=== PATIENT | female | born 1995 | race African-American/Black ===

== ENCOUNTER 2016-07-28 20:13 | Emergency (ER) | payer SELFPAY ==
[~2016-07-28] VITALS: Ht 160 cm; Wt 48.2 kg
[2016-07-29 01:56] VITALS: BP 110/77
== END 2016-07-29 01:56 | disposition home or self-care (01) ==
LOC: ER 20:14
DX: B34.9 Viral infection, unspecified (principal); J45.909 Unspecified asthma, uncomplicated; Z88.6 Allergy status to analgesic agent; Z91.010 Allergy to peanuts; Z91.018 Allergy to other foods; Z98.890 Other specified postprocedural states
CPT/HCPCS: 71010; 81025; 93005; 99283

== ENCOUNTER 2019-03-24 12:31 | Emergency (ER) | payer MEDICAID ==
[~2019-03-24] VITALS: Ht 160 cm; Wt 50.0 kg
[2019-03-24 12:33] VITALS: BP 103/60
== END 2019-03-24 15:42 | disposition home or self-care (01) ==
LOC: ER 12:43
DX: O9A.212 Injury, poisoning and certain other consequences of external causes complicating pregnancy, second trimester (principal); T37.8X5A Adverse effect of other specified systemic anti-infectives and antiparasitics, initial encounter; O99.612 Diseases of the digestive system complicating pregnancy, second trimester; K21.9 Gastro-esophageal reflux disease without esophagitis; O99.512 Diseases of the respiratory system complicating pregnancy, second trimester; J45.909 Unspecified asthma, uncomplicated; O26.892 Other specified pregnancy related conditions, second trimester; Z3A.19 19 weeks gestation of pregnancy; Z91.010 Allergy to peanuts; Z88.6 Allergy status to analgesic agent; Z98.890 Other specified postprocedural states; Y92.89 Other specified places as the place of occurrence of the external cause
CPT/HCPCS: 99283

== ENCOUNTER 2019-08-20 08:30 | Inpatient (IN) | payer MEDICAID ==
[~2019-08-20] VITALS: Ht 160 cm; Wt 59.0 kg
[2019-08-20] MEDS ORDERED: RHO(D) IMMUNE GLOBULIN 300 MCG/SYR IM ONE (11:00)
[2019-08-20] MEDS ORDERED: LIDOCAINE HCL 1% 20ML VIAL (Pyxis) INJ INFIL SCH (11:00)
[2019-08-20] MEDS: LACTATED RINGERS 1,000 ML IV SCH ×3 (11:30→20:28)
[2019-08-20 11:35] LABS: BASOPHILS % 0.4 % (0.0-2.0); EOSINOPHILS % 3.5 % (0.0-5.0); HEMATOCRIT. 34.4 % (36.0-48.0); HEMOGLOBIN. 12.1 g/dL (12.0-16.0); MEAN CORPUSCULAR HEMOGLOBIN 31.9 pg (28.0-32.0); MEAN CORPUSCULAR VOLUME 90.7 fL (81.0-99.0); MEAN PLATELET VOLUME 8.1 fl (7.4-10.4); MONOCYTES % 6.5 % (2.0-8.0); NEUTROPHILS % 63.6 % (40.0-76.0); PLATELET 279 x1000/uL (130-400); RED BLOOD CELL COUNT 3.79 mill/uL (4.2-5.4); RED CELL DISTRIBUTION WIDTH 13.8 % (11.6-14.6)
[2019-08-20 11:41] LABS: CLARITY URINE CLOUDY (CLEAR); COLOR URINE YELLOW (YELLOW); INR 0.9; KETONES URINE TRACE (NEGATIVE); LEUKOCYTE ESTERASE URINE 3+ (NEGATIVE); NITRITE URINE NEGATIVE (NEGATIVE); OCCULT BLOOD URINE NEGATIVE (NEGATIVE); PARTIAL THROMBOPLASTIN TIME 26.2 sec (23.4-31.0); PROTEIN URINE TRACE (NEGATIVE); PROTHROMBIN TIME 10.1 sec (9.6-11.0); SPECIFIC GRAVITY URINE 1.031 (1.005-1.030)
[2019-08-20] MEDS ORDERED: ROPIVACAINE HCL/PF EPIDURAL 200 ML EPI SCH (11:45)
[2019-08-20 12:00] LABS: *AMPHETAMINES SCREEN URINE NEGATIVE (NEGATIVE); *BARBITURATES SCREEN URINE NEGATIVE (NEGATIVE); *BENZODIAZEPINES SCREEN URINE NEGATIVE (NEGATIVE); CANNABINOID URINE SCREEN NEGATIVE (NEGATIVE); METHADONE URINE SCREEN NEGATIVE (NEGATIVE); OPIATES URINE SCREEN NEGATIVE (NEGATIVE); PHENCYCLIDINE URINE SCREEN NEGATIVE (NEGATIVE)
[2019-08-20] MEDS: DEXT 5%/LR + PITOCIN 20UNITS/L 1,000 ML IV SCH ×2 (12:03→22:47)
[2019-08-20 12:14] LABS: *COCAINE SCREEN URINE NEGATIVE (NEGATIVE)
[2019-08-20 12:33] LABS: HEPATITIS B SURFACE ANTIGEN NEGATIVE
[2019-08-20] MEDS ORDERED: FENTANYL CITRATE/PF 50MCG/ML 2ML VIAL ONE (20:06)
[2019-08-20] MEDS ORDERED: LIDOCAINE HCL/PF 1% 10 MG/ML 5ML VIAL ONE (20:07)
[2019-08-20] MEDS ORDERED: DEXT 5%/LR + PITOCIN 20UNITS/L 1,000 ML IV SCH (22:58)
[2019-08-20] MEDS ORDERED: GLYCERIN/WITCH HAZEL LEAF MEDICATED PAD TOP PRN (23:00)
[2019-08-20] MEDS ORDERED: IBUPROFEN 800MG TABLET PO PRN (23:00)
[2019-08-20] MEDS ORDERED: LANOLIN OINT 7GM TUBE TOP PRN (23:00)
[2019-08-20] MEDS ORDERED: HEMORRHOIDAL SUPP PR PRN (23:00)
[2019-08-20] MEDS ORDERED: IBUPROFEN 400MG TABLET PO PRN (23:00)
[2019-08-20] MEDS ORDERED: BISACODYL 10MG SUPP PR PRN (23:00)
[2019-08-20] MEDS ORDERED: ACETAMINOPHEN WITH CODEINE 300/30MG TABLET PO PRN (23:00)
[2019-08-20] MEDS ORDERED: BENZOCAINE/LANOLIN/ALOE VERA SPRAY TOP PRN (23:00)
[2019-08-20] MEDS ORDERED: DIPHENHYDRAMINE 25MG CAPSULE PO PRN (23:00)
[2019-08-21 00:10] VITALS: BP 107/63
[2019-08-21 04:00] VITALS: BP 113/58
[2019-08-21 06:23] LABS: BASOPHILS % 0.1 % (0.0-2.0); HEMATOCRIT. 32.7 % (36.0-48.0); HEMOGLOBIN. 11.5 g/dL (12.0-16.0); LYMPHOCYTES % 8.9 % (20.0-50.0); MEAN CORPUSCULAR HEMOGLOBIN 31.6 pg (28.0-32.0); MEAN CORPUSCULAR VOLUME 89.7 fL (81.0-99.0); MONOCYTES % 4.9 % (2.0-8.0); NEUTROPHILS % 86.1 % (40.0-76.0); PLATELET 245 x1000/uL (130-400); RED BLOOD CELL COUNT 3.65 mill/uL (4.2-5.4); RED CELL DISTRIBUTION WIDTH 13.7 % (11.6-14.6)
[2019-08-21 07:50] VITALS: BP 118/67
[2019-08-21] MEDS: MAGNESIUM/ALUMINUM HYDROXIDE/SIMETHICONE 30ML UDC PO SCH ×4 (08:10→17:30)
[2019-08-21] MEDS: FERROUS SULFATE 325MG TABLET PO SCH ×3 (08:11→17:25)
[2019-08-21] MEDS: PRENATAL VIT/FE FUMARATE/FA TABLET PO SCH (08:11)
[2019-08-21] MEDS: SIMETHICONE 80MG TABLET CHEW PO SCH ×4 (08:11→17:35)
[2019-08-21 15:25] VITALS: BP 100/50
[2019-08-21 20:00] VITALS: BP 103/55
[2019-08-21] MEDS ORDERED: DOCUSATE SODIUM 100MG CAPSULE PO SCH (21:00)
[2019-08-22 04:00] VITALS: BP 97/61
[2019-08-22] MEDS: MAGNESIUM/ALUMINUM HYDROXIDE/SIMETHICONE 30ML UDC PO SCH (06:32)
[2019-08-22] MEDS: SIMETHICONE 80MG TABLET CHEW PO SCH (06:33)
[2019-08-22 08:30] VITALS: BP 103/61
[2019-08-22] MEDS: PRENATAL VIT/FE FUMARATE/FA TABLET PO SCH (09:29)
== END 2019-08-22 13:00 | disposition home or self-care (01) | DRG 560 ==
LOC: OBSVTOIN 08:30 → 8 EST LDRP 08:30 → 8EST 23:58
PROVIDERS: ADMIT Obstetrics & Gynecology; ATTEND Obstetrics & Gynecology
PROC: 0KQM0ZZ Repair Perineum Muscle, Open Approach (ICD-10-PCS; principal; 2019-08-20)
PROC: 10E0XZZ Delivery of Products of Conception, External Approach (ICD-10-PCS; 2019-08-20)
DX: O70.1 Second degree perineal laceration during delivery (principal); Z37.0 Single live birth; Z3A.39 39 weeks gestation of pregnancy
CPT/HCPCS: 36415; 80305; 81003; 85025; 86592; 86703; 86762; 86850; 86900; 87340; 99281; J2590; J2795; J3010; J3490